=== PATIENT | male | born 2000 | race Caucasian/White ===

== ENCOUNTER 2025-07-11 21:17 | Emergency (ER) | payer MEDICAID ==
[~2025-07-11] VITALS: Ht 180.3 cm; Wt 122.5 kg
[2025-07-11 21:18] VITALS: BP 127/76
[2025-07-11] MEDS ORDERED: LIDOCAINE 1%-EPI 1:100,000 20 ML VIAL ONE (21:37)
[2025-07-11 22:06] LABS: PLATELET COUNT (AUTO) 238 K/uL (152-348); RED BLOOD CELL COUNT(AUTO) 4.81 MIL/uL (4.06-5.63); RED CELL DISTRIBUTION WIDTH 13.0 % (12.1-16.2); WHITE BLOOD COUNT (AUTO) 9.9 K/uL (3.6-10.2)
[2025-07-11] MEDS ORDERED: INDOMETHACIN 25 MG CAPSULE ONE (22:06)
[2025-07-11] MEDS ORDERED: ONDANSETRON ODT 4 MG TAB.RAPDIS ONE (22:06)
[2025-07-11] MEDS ORDERED: HYDROCODONE/APAP 10-325 MG TABLET ONE ×2 (22:07→23:40)
[2025-07-11 22:12] LABS: ERYTHROCYTE SEDIMENTATION RATE 22 MM/HR (0-15)
[2025-07-11] MEDS: HYDROCODONE/APAP 10-325 MG TABLET PO ONE ×2 (22:16→23:41)
[2025-07-11] MEDS: INDOMETHACIN 25 MG CAPSULE PO ONE (22:16)
[2025-07-11] MEDS: ONDANSETRON ODT 4 MG TAB.RAPDIS SL ONE (22:16)
[2025-07-11 22:17] LABS: TOTAL VOLUME,BODY FLUID 30 mL
[2025-07-11 22:33] LABS: PH, BODY FLUID 7.5
[2025-07-11 22:36] LABS: WBC, BODY FLUID 32100 /cu. mm (0-200/cu.mm)
[2025-07-11 22:40] LABS: PROTEIN, BODY FLUID 5.1 G/DL
[2025-07-11] MEDS ORDERED: INDO-13 PO (22:43)
[2025-07-11] MEDS ORDERED: ONDA-243 PO (22:43)
[2025-07-11] MEDS ORDERED: HYDR-3980 PO (22:43)
[2025-07-12 00:19] VITALS: BP 127/76; TEMP 98; O2SAT 98
== END 2025-07-12 00:20 | disposition home or self-care (01) ==
LOC: ER 21:17
DX: M17.12 Unilateral primary osteoarthritis, left knee (principal)
CPT/HCPCS: 99285; 20610; 84550; 85025; 85651; 89051; 36415; J3490; A4606; A4663; Q0162

== ENCOUNTER 2025-08-01 19:30 | Emergency (ER) | payer MEDICAID ==
[~2025-08-01] VITALS: Ht 177.8 cm; Wt 104.3 kg
[~2025-08-01 19:30] MED LIST: HYDR-3980 PO; INDO-13 PO; ONDA-243 PO
[2025-08-01 19:38] VITALS: BP 114/69
[2025-08-01] MEDS ORDERED: BUPIVACAINE PF 0.5% 30 ML VIAL ONE (20:13)
[2025-08-01] MEDS ORDERED: IBUP-2760 PO (20:58)
[2025-08-01] MEDS: BUPIVACAINE PF 0.5% 30 ML VIAL TP ONE (21:05)
[2025-08-01] MEDS ORDERED: KETOROLAC TROMETHAMINE 30 MG INJ ONE (21:08)
[2025-08-01] MEDS ORDERED: ACETAMINOPHEN 500 MG TABLET ONE (21:08)
[2025-08-01] MEDS: ACETAMINOPHEN 500 MG TABLET PO ONE (21:12)
[2025-08-01] MEDS: KETOROLAC TROMETHAMINE 30 MG INJ IM ONE (21:13)
[2025-08-01 21:28] VITALS: BP 118/66; TEMP 98; O2SAT 98
== END 2025-08-01 21:28 | disposition home or self-care (01) ==
LOC: ER 19:36
DX: M17.12 Unilateral primary osteoarthritis, left knee (principal); Z79.899 Other long term (current) drug therapy
CPT/HCPCS: 99283; 96372; J1885; J3490; A4606; A4663; A9150